=== PATIENT | male | born 1980 | race Caucasian/White ===

== ENCOUNTER 2016-11-09 09:57 | Emergency (ER) | payer SELFPAY ==
[2016-11-09] MEDS ORDERED: PENICILLIN G BENZATHINE 1.2 MILLION UNIT/2 ML DISP.SYRIN IM ONE (10:29)
[2016-11-09] MEDS ORDERED: AZITHROMYCIN 250 MG TABLET PO ONE (10:29)
[2016-11-09] MEDS ORDERED: LIDOCAINE 1% INJ-PF (10 MG/ML) 30 ML SDV INFIL ONE (10:29)
[2016-11-09] MEDS ORDERED: CEFTRIAXONE INJ 250 MG VIAL IM ONE (10:30)
--- NOTE | 2016-11-09 10:33 | ER Document Report ---
HPI - HPI Patient complains to provider of: skin lesion Onset: Other - 3 days Onset/Duration: Persistent Quality of pain: Achy Pain Level: 3 Context: Patient states that he had what looked to be a pimple to the right groin area that gradually got larger and then popped and had bloody purulent drainage. Patient states area is muffler tender and slightly swollen. Patient denies any history of MRSA. Associated Symptoms: Other - Skin lesion. denies: Fever Exacerbated by: Denies Relieved by: Denies Similar symptoms previously: No Recently seen / treated by doctor: No - ROS ROS below otherwise negative: Yes Systems Reviewed and Negative: Yes All other systems reviewed and negative - CONSTITUTIONAL Constitutional: DENIES: Fever - EENT EENT: DENIES: Sore Throat - RESPIRATORY Respiratory: DENIES: Coughing - GASTROINTESTINAL Gastrointestinal: DENIES: Abdominal Pain, Nausea, Patient vomiting - URINARY Urinary: DENIES: Dysuria - DERM Skin Color: Normal Notes: open wound Past Medical History - General Information source: Patient - Social History Smoking Status: Current Every Day Smoker Frequency of alcohol use: Occasional Drug Abuse: None Occupation: [employer] Family History: Reviewed & Not Pertinent - Medical History Medical History: Negative Renal/ Medical History: Denies: Hx Peritoneal Dialysis Skin Medical History: Denies Hx MRSA Surgical Hx: Negative Vertical Provider Document - CONSTITUTIONAL Agree With Documented VS: Yes Exam Limitations: No Limitations General Appearance: WD/WN, No Apparent Distress - INFECTION CONTROL TRAVEL OUTSIDE OF THE [place] IN LAST 30 DAYS: No - HEENT HEENT: Atraumatic, Normocephalic - NECK Neck: Normal Inspection - RESPIRATORY Respiratory: Breath Sounds Normal, No Respiratory Distress O2 Sat by Pulse Oximetry: 100 - CARDIOVASCULAR Cardiovascular: Regular Rate, Regular Rhythm - MUSCULOSKELETAL/EXTREMETIES Musculoskeletal/Extremeties: MAEW, FROM - NEURO Level of Consciousness: Awake, Alert, Appropriate Motor/Sensory: No Motor Deficit - DERM Integumentary: Warm, Dry Adult Front & Back Diagram: 1 - Tender, indurated ulceration to right inguinal area Course - Re-evaluation Re-evalutation: 11/09/16 The patient has been informed that they may have pre-hypertension or hypertension based on a blood pressure reading in the emergency department. I recommend that patient call the primary care provider listed on their discharge instructions or a physician of their choice by this week to arrange follow-up for further evaluation of possible pre-hypertension or hypertension. 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 Condition: Stable Disposition: HOME, SELF-CARE Instructions: Abscess ([facility]), Azithromycin ([facility]), Rocephin ([facility]), Trimethoprim- Sulfa ([facility]) Additional Instructions: Return immediately for any new or worsening symptoms Followup with your primary care provider, call tomorrow to make a followup appointment Cultures are pending, we will call if you need any different treatment Prescriptions: Hydrocodone/Acetaminophen [[place] 5-325 Tablet] 1 each PO Q4 PRN #15 tablet PRN Reason: Sulfamethoxazole/Trimethoprim [Bactrim Ds Tablet] 1 each PO BID #20 tablet Forms: Elevated Blood Pressure, Return to Work Referrals: [facility] [Provider Group] - Follow up as needed
[2016-11-09 11:59] VITALS: BP 133/86
== END 2016-11-09 12:02 | disposition home or self-care (01) ==
LOC: ER 09:57
DX: L98.491 Non-pressure chronic ulcer of skin of other sites limited to breakdown of skin (principal); L02.214 Cutaneous abscess of groin; R03.0 Elevated blood-pressure reading, without diagnosis of hypertension; F17.200 Nicotine dependence, unspecified, uncomplicated
CPT/HCPCS: 99283; 96372; 36415; 87070; 87205; 87077; 86592; 87250; 87186; J3490; J0561; J0696

== ENCOUNTER 2017-02-08 14:53 | Emergency (ER) | payer SELFPAY ==
[2017-02-08] MEDS ORDERED: ONDANSETRON 4 MG TAB.RAPDIS PO ONE (15:16)
[2017-02-08] MEDS ORDERED: IBUPROFEN 800 MG TABLET PO ONE (15:16)
--- NOTE | 2017-02-08 15:17 | ER Document Report ---
HPI - HPI Patient complains to provider of: Cough, congestion sore throat Onset: Yesterday Onset/Duration: Gradual Quality of pain: Achy Pain Level: 1 Context: Patient presents complaining of cough and congestion that started yesterday. Patient states he had nausea and vomiting 1 episode yesterday. Patient is nauseated today but denies any vomiting today. Patient reports fever yesterday. Associated Symptoms: Body/muscle aches, Chills, Nonproductive cough, Fever - Yesterday, Nausea, Vomiting, Rhinnorhea, Sore throat. denies: Earache Exacerbated by: Denies Relieved by: Denies Similar symptoms previously: No Recently seen / treated by doctor: No - ROS ROS below otherwise negative: Yes Systems Reviewed and Negative: Yes All other systems reviewed and negative - CONSTITUTIONAL Constitutional: REPORTS: Fever, Chills - EENT EENT: REPORTS: Sore Throat, Nasal Drainage-Clear, Congestion - NEURO Neurology: DENIES: Headache, Weakness - CARDIOVASCULAR Cardiovascular: DENIES: Chest pain - RESPIRATORY Respiratory: REPORTS: Coughing - GASTROINTESTINAL Gastrointestinal: REPORTS: Nausea, Patient vomiting. 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 IN LAST 30 DAYS: No - HEENT HEENT: Atraumatic, Normocephalic, Pharyngeal Tenderness, Pharyngeal Erythema. negative: Pharyngeal Exudate, Tympanic Membrane Red, Tympanic Membrane Bulging Notes: Clear rhinorrhea - NECK Neck: Normal Inspection, Supple. negative: Lymphadenopathy-Left, Lymphadenopathy-Right - RESPIRATORY Respiratory: No Respiratory Distress, Chest Non-Tender, Other - Occasional dry cough O2 Sat by Pulse Oximetry: 100 - CARDIOVASCULAR Cardiovascular: Regular Rate, Regular Rhythm, No Murmur - BACK Back: Normal Inspection - MUSCULOSKELETAL/EXTREMETIES Musculoskeletal/Extremeties: HAFSA [place] - NEURO Level of Consciousness: Awake, Alert, Appropriate Motor/Sensory: No Motor Deficit - DERM Integumentary: Warm, Dry, No Rash Course - Re-evaluation Re-evalutation: 02/08/17 Patient's respirations unlabored. Patient nontoxic in appearance. No concern for pneumonia. Discussed worsening symptoms that patient should return immediately for. Patient verbalized understanding and agrees with plan of care - Vital Signs Vital signs: Temp Pulse Resp BP Pulse Ox 98.5 F 59 L 18 156/88 H 100 02/08/17 14:57 02/08/17 14:57 02/08/17 14:57 02/08/17 14:57 02/08/17 14:57 - Laboratory Laboratory results interpreted by me: 02/08/17 17:25 Labs- Entire Visit 02/08/17 16:00 Group A Strep Rapid NEGATIVE Discharge - Discharge Clinical Impression: Sore throat, Nausea Upper respiratory infection Qualifiers: URI type: unspecified URI Qualified Code(s): J06.9 - Acute upper respiratory infection, unspecified Condition: Stable Disposition: HOME, SELF-CARE Instructions: Antinausea Medication ([facility]), Upper Respiratory Illness ([facility]) Additional Instructions: Return immediately for any new or worsening symptoms Followup with your primary care provider, call tomorrow to make a followup appointment Throat culture is pending, we will call if you need any different treatment Prescriptions: Benzonatate [Tessalon Perle 100 mg Capsule] 100 mg PO Q8HP PRN #20 cap PRN Reason: Naproxen [Naprosyn 250 Nmg Tablet] 1 tab PO BID #14 tablet Promethazine HCl [Phenergan 25 mg Tablet] 25 mg PO Q6H PRN #12 tablet PRN Reason: Forms: Return to Work Referrals: [facility] [Provider Group] - Follow up as needed
[2017-02-08 17:24] VITALS: BP 136/93
== END 2017-02-08 17:24 | disposition home or self-care (01) ==
LOC: ER 14:53
DX: J06.9 Acute upper respiratory infection, unspecified (principal); J02.9 Acute pharyngitis, unspecified; R11.2 Nausea with vomiting, unspecified; R05 Cough; R09.81 Nasal congestion; M79.1 Myalgia; R50.9 Fever, unspecified; F17.200 Nicotine dependence, unspecified, uncomplicated
CPT/HCPCS: 99283; 87070; 87880; S0119

== ENCOUNTER 2017-02-14 01:08 | Emergency (ER) | payer SELFPAY ==
--- NOTE | 2017-02-14 02:52 | RADIOLOGY REPORT (SQ) ---
EXAM DESCRIPTION: HAND LEFT 3 VIEWS CLINICAL HISTORY: 36 years, Male, hand injury COMPARISON: None. NUMBER OF VIEWS: 3 TECHNIQUE: Frontal lateral and oblique. LIMITATIONS: None. FINDINGS: Deformity of the left fifth metacarpus consistent with old injury. IMPRESSION: As above. 2011 [employer]- All Rights Reserved
[2017-02-14 02:57] VITALS: BP 120/80
[2017-02-14] MEDS ORDERED: IBUPROFEN 600 MG TABLET PO ONE (03:05)
--- NOTE | 2017-02-14 03:05 | ER Document Report ---
HPI - HPI Patient complains to provider of: Left hand injury Pain Level: 5 Context: Patient is a 36-year-old male comes emergency department for chief complaint of left hand injury. He states he was angry and he punched a trailer this evening. He has had swelling to his hand and he became concerned. He also has a second concern of an area on his right groin which is a skin infection per patient. He states this appeared about 2 days ago, he has had similar infections in the same area in the past. He states he was also tested because of this previously and he wants to know his results from last time. He denies any fever chills, discharge, he states he is sexually active with his girlfriend. - CONSTITUTIONAL Constitutional: DENIES: Fever, Chills - EENT EENT: DENIES: Sore Throat, Ear Pain, Eye problems - NEURO Neurology: DENIES: Headache, Weakness, Vision blurred, Dizzinesss / Vertigo - CARDIOVASCULAR Cardiovascular: DENIES: Chest pain - RESPIRATORY Respiratory: DENIES: Trouble Breathing, Coughing - GASTROINTESTINAL Gastrointestinal: DENIES: Abdominal Pain, Black / Bloody Stools - URINARY Urinary: DENIES: Dysuria, Urgency, Frequency - MUSCULOSKELETAL Musculoskeletal: REPORTS: Extremity pain - L hand Past Medical History - General Information source: Patient - Social History Smoking Status: Current Some Day Smoker Frequency of alcohol use: Social Drug Abuse: None Lives with: Family Family History: Reviewed & Not Pertinent Patient has suicidal ideation: No Patient has homicidal ideation: No - Medical History Medical History: Negative Renal/ Medical History: Denies: Hx Peritoneal Dialysis Skin Medical History: Denies Hx MRSA Past Surgical History: Reports: Hx Tonsillectomy - Immunizations Hx Diphtheria, Pertussis, Tetanus Vaccination: No Vertical Provider Document - CONSTITUTIONAL General Appearance: WD/WN, No Apparent Distress - INFECTION CONTROL TRAVEL OUTSIDE OF THE [place] IN LAST 30 DAYS: No - HEENT HEENT: Atraumatic, Normocephalic - NECK Neck: Normal Inspection - RESPIRATORY Respiratory: Breath Sounds Normal, No Respiratory Distress O2 Sat by Pulse Oximetry: 98 - CARDIOVASCULAR Cardiovascular: Regular Rate, Regular Rhythm - GI/ABDOMEN Gastrointestinal: Abdomen Soft, Abdomen Non-Tender - MUSCULOSKELETAL/EXTREMETIES Musculoskeletal/Extremeties: Tender - There is mild soft tissue swelling over the dorsal aspect of the left hand near the knuckles and over the MCP joints. No snuffbox tenderness, full range of motion of hand, normal capillary refill and sensation, normal range of motion of the wrist, normal upper extremity exam otherwise. No open wounds. - NEURO Level of Consciousness: Awake, Alert, Appropriate - DERM Integumentary: Rash - There is an erythematous area over the right lower inguinal region near the genitals, there is a scratched surface, no induration or fluctuance, mild tenderness to the area, no nearby lymphadenopathy, genital exam unremarkable otherwise. Course - Re-evaluation Re-evalutation: X-ray shows old fracture but no new abnormalities. Patient has some soft tissue swelling, no snuffbox tenderness, no evidence of fracture. Area will be iced and he will take an anti-inflammatory. In regards to the rash it does appear to be a mild area of cellulitis around what was a scratched open area of acne or plugged sebaceous gland. There is no induration or fluctuance requiring drainage, there is no vesicle or chancre noted. Previous tests of HSV and syphilis were negative. Patient will be placed on doxycycline, discussed follow-up, return precautions, patient and girlfriend state understanding and agreement. - Vital Signs Vital signs: Temp Pulse Resp BP Pulse Ox 98 F 56 L 16 120/80 98 02/14/17 02:57 02/14/17 02:57 02/14/17 02:57 02/14/17 02:57 02/14/17 02:57 Discharge - Discharge Clinical Impression: Skin infection Injury of left hand Qualifiers: Encounter type: initial encounter Qualified Code(s): S69.92XA - Unspecified injury of left wrist, hand and finger(s), initial encounter Condition: Stable Disposition: HOME, SELF-CARE Additional Instructions: The x-ray shows an old fracture, examination is consistent with soft tissue injury but no new fracture. Apply ice to the area 3-4 times a day for 15 minutes, take the ibuprofen as prescribed, follow-up with primary care. In regards to the skin infection I recommend taking the doxycycline as prescribed, apply warm compress to the area. Follow-up with primary care. Previous syphilis and herpes tests were negative. Return to the emergency department for any concerning or worsening symptoms including severe swelling or pain of the hand, spreading redness of the rash, fever, or any other concerning symptoms. Prescriptions: Doxycycline Hyclate 100 mg PO BID #14 capsule Ibuprofen 800 mg PO Q8 #30 tablet Forms: Return to Work
== END 2017-02-14 03:14 | disposition home or self-care (01) ==
LOC: ER 01:08
DX: S69.92XA Unspecified injury of left wrist, hand and finger(s), initial encounter (principal); L08.9 Local infection of the skin and subcutaneous tissue, unspecified; M79.89 Other specified soft tissue disorders; F17.200 Nicotine dependence, unspecified, uncomplicated; W22.01XA Walked into wall, initial encounter
CPT/HCPCS: 99283

== ENCOUNTER 2017-02-18 23:04 | Emergency (ER) | payer SELFPAY ==
[2017-02-18 23:11] VITALS: BP 148/97
--- NOTE | 2017-02-18 23:27 | ER Document Report ---
ED Hand/Wrist Injury - General Chief Complaint: Hand Injury Stated Complaint: LEFT HAND SWELLING Time Seen by Provider: 02/18/17 23:21 Notes: Patient is a [id number] 36-year-old male who was seen here previously on February 14 for a left hand injury. Patient states he punched something and has had pain and swelling of that hand. Patient claims that his x-rays were nondiagnostic due to the significant swelling. He should ice his hand and take Motrin and follow-up in a couple of days for new images. He states that his pain is improving and the swelling is going down but that he still has pain on the palmar surface raise evidence of ecchymosis of his palm. Otherwise denies any new trauma. States sensation is equal bilaterally. Previous boxer fracture of the left hand. TRAVEL OUTSIDE OF THE [place] IN LAST 30 DAYS: No - Related Data Allergies/Adverse Reactions: No Known Allergies Allergy (Verified 02/08/17 14:54) Past Medical History - Social History Smoking Status: Unknown if Ever Smoked Family History: Reviewed & Not Pertinent Patient has suicidal ideation: No Patient has homicidal ideation: No Renal/ Medical History: Denies: Hx Peritoneal Dialysis Skin Medical History: Denies Hx MRSA Past Surgical History: Reports: Hx Tonsillectomy - Immunizations Hx Diphtheria, Pertussis, Tetanus Vaccination: No Review of Systems - Review of Systems Constitutional: No symptoms reported Cardiovascular: No symptoms reported Respiratory: No symptoms reported Gastrointestinal: No symptoms reported Musculoskeletal: See HPI Skin: No symptoms reported -: Yes All other systems reviewed and negative Physical Exam - Vital signs Vitals: Temp Pulse Resp BP Pulse Ox 98.6 F 60 16 148/97 H 100 02/18/17 23:11 02/18/17 23:11 02/18/17 23:11 02/18/17 23:11 02/18/17 23:11 - Notes Notes: PHYSICAL EXAM GENERAL: Alert, interacts well. EXTREMITIES: Moves all 4 extremities spontaneously with guarding of the left hand. Patient is able to make a fist and extend his fingers. Strength is equal in all left upper extremity digits. Patient without any pain or limited range of motion of the elbow. Moves his wrist without pain. Mild ecchymosis noted on the palmar surface of the left hand but without any evidence of deformity or localized swelling.. No edema, radial No cyanosis. NEUROLOGICAL: Alert and oriented x4. Normal speech. PSYCH: Normal affect, normal mood. SKIN: Warm, dry, normal turgor. No rashes or lesions noted. Course - Re-evaluation Re-evalutation: 02/19/17 01:43 Patient is 36-year-old male who is hemodynamically stable, no acute distress. There is evidence of old fractures noted on the heads of the fourth and fifth metacarpals of the left hand without evidence of new injury.At this time, I do not see an indication for labs or further imaging. Will discharge with conservative measures, return precautions, and follow-up recommendations. - Vital Signs Vital signs: Temp Pulse Resp BP Pulse Ox 98.6 F 60 16 148/97 H 100 02/18/17 23:11 02/18/17 23:11 02/18/17 23:11 02/18/17 23:11 02/18/17 23:11 - Diagnostic Test Radiology reviewed: Image reviewed, Reports reviewed Discharge - Discharge Clinical Impression: Injury of left hand Qualifiers: Encounter type: subsequent encounter Qualified Code(s): S69.92XD - Unspecified injury of left wrist, hand and finger(s), subsequent encounter Condition: Good Disposition: HOME, SELF-CARE Additional Instructions: The x-ray shows an old fracture, examination is consistent with soft tissue injury but no new fracture. Apply ice to the area 3-4 times a day for 15 minutes, take the ibuprofen as prescribed, follow-up with primary care. Return to the emergency department for any concerning or worsening symptoms including severe swelling or pain of the hand, spreading redness of the rash, fever, or any other concerning symptoms. Forms: Special Work Note, Return to Work Referrals: PETROS NICHOLSON MD [COMMUNITY BASED STAFF] - Follow up as needed [facility] [NO [facility]AL MD] - Follow up as needed [facility] [Provider Group] - Follow up as needed
[2017-02-19] MEDS ORDERED: ACETAMINOPHEN 325 MG TABLET PO ONE (00:13)
--- NOTE | 2017-02-19 01:11 | RADIOLOGY REPORT (SQ) ---
EXAM DESCRIPTION: HAND LEFT 3 VIEWS CLINICAL HISTORY: 36 years, Male, hand pain, no new injury COMPARISON: None. NUMBER OF VIEWS: 3 FINDINGS: No acute findings. Mild deformity of the distal left fourth and fifth metacarpi consistent with old injury. IMPRESSION: No acute findings. 2011 [employer]- All Rights Reserved
== END 2017-02-19 01:51 | disposition home or self-care (01) ==
LOC: ER 23:04
DX: S69.92XA Unspecified injury of left wrist, hand and finger(s), initial encounter (principal); W22.01XD Walked into wall, subsequent encounter
CPT/HCPCS: 99283

== ENCOUNTER 2017-03-02 21:04 | Emergency (ER) | payer SELFPAY ==
[2017-03-02 21:11] VITALS: BP 137/87
--- NOTE | 2017-03-02 22:02 | ER Document Report ---
ED Hand/Wrist Injury - General Chief Complaint: Hand Injury Stated Complaint: LEFT HAND INJURY Time Seen by Provider: 03/02/17 21:47 Mode of Arrival: Ambulatory Information source: Patient, Relative Notes: Patient is a 36-year-old male who returns emergency room complaining of left hand pain. Partially 2 weeks ago patient states she got mad and hit a wall came into the emergency room hand swelled up and an x-ray was told there is no fracture he was sent home about a week later he came back still having some pain and discomfort it was re-x-rayed again again radiologist reads it as negative patient states he was told by provider to give it another 7 days and if there was still no improvement to come back to ER. Patient returns tonight wanting to know what he can do because he has missed 2 weeks of work and he needs to get back to it. He denies any other new injuries. TRAVEL OUTSIDE OF THE [place] IN LAST 30 DAYS: No - HPI Patient complains to provider of: Left hand pain Injury to: Hand Onset: Last week - Original date of injury is on February 14, 2017 patient followed up on February 18, 2017 and returns back here today on 03/02/2017 [facility]: [facility] place Timing: Constant Quality of pain: Sharp Severity: Moderate Pain Level: 3 Context: Swelling - Related Data Allergies/Adverse Reactions: No Known Allergies Allergy (Verified 02/08/17 14:54) Past Medical History - General Information source: Patient - Social History Smoking Status: Current Every Day Smoker Cigarette use (# per day): Yes - Pack a day Chew tobacco use (# tins/day): No Smoking Education Provided: Yes Frequency of alcohol use: Occasional Drug Abuse: None 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 Lives with: Family Family History: Reviewed & Not Pertinent Patient has suicidal ideation: No Patient has homicidal ideation: No Renal/ Medical History: Denies: Hx Peritoneal Dialysis Skin Medical History: Denies Hx MRSA Past Surgical History: Reports: Hx Tonsillectomy - Immunizations Hx Diphtheria, Pertussis, Tetanus Vaccination: No Review of Systems - Review of Systems Constitutional: No symptoms reported EENT: No symptoms reported Cardiovascular: No symptoms reported Respiratory: No symptoms reported Gastrointestinal: No symptoms reported Genitourinary: No symptoms reported Male Genitourinary: No symptoms reported Musculoskeletal: Joint pain, Muscle pain Skin: No symptoms reported Hematologic/Lymphatic: No symptoms reported Neurological/Psychological: No symptoms reported -: Yes All other systems reviewed and negative Physical Exam - Vital signs Vitals: Temp Pulse Resp BP Pulse Ox 98.2 F 77 16 137/87 H 100 03/02/17 21:10 03/02/17 21:10 03/02/17 21:10 03/02/17 21:10 03/02/17 21:10 Interpretation: Hypertensive - General General appearance: Alert, Other - Uncomfortable. - HEENT Head: Normocephalic, Atraumatic - Respiratory Respiratory status: No respiratory distress Chest status: Nontender Breath sounds: Normal. No: Decreased air movement, Nonproductive cough, Productive cough, Rales, Rhonchi, Stridor, Wheezing, Other - Cardiovascular Rhythm: Regular Heart sounds: Normal auscultation Murmur: No - Extremities General upper extremity: Tender. No: Normal inspection, Nontender, Edema, Normal color, Normal ROM, Normal strength, Normal temperature, Other General lower extremity: Normal inspection, Normal ROM, Normal weight bearing Hand: Tender, Other - Examination of patient's left hand shows that he has full flexion-extension of the fingers with some difficulty on full extension. He has pain in the palm of the hand across the fifth fourth and third fingers. There is a tenderness to palpation and to touch along those 3 finger lines primarily at the palm side fourth digit. Vascular exam of the hand is normal patient has good cap refill in nailbeds of all the fingers of the left hand. 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 Is unable to hold supervisor instant potato processing against resistance. Further evaluation shows a skin temperature to be normal there is no sign of infection nothing that would lead to believe that this would be a tenosynovitis presentation. - Skin Skin Temperature: Warm Skin Moisture: Dry Skin Color: Normal, [place] Course - Vital Signs Vital signs: Temp Pulse Resp BP Pulse Ox 98.2 F 77 16 137/87 H 100 03/02/17 21:10 03/02/17 21:10 03/02/17 21:10 03/02/17 21:10 03/02/17 21:10 - Transfer of Care Notes: 03/02/17 22:08 I told patient that at this point emergency room is the least of the place that she should come. We have limited resources as far as to this type of an injury. He needs to be followed up with a hand specialist or an logistic specialist. I have explained to him that ruling out fractures about all we can do here in the emergency room. That the tenderness to the hand could still be a partially torn tendon or ligament. Something that continuous x-rays is not going to solve the problem. I have informed him that he really needs to speak to a hand or logistic specialist I am going to give him Dr. Vazquez office number and have him call the office to set an appointment. I am going to put him on a dose of steroids to see if this helps alleviate some of the discomfort possible inflammation that may be inside. The injury to the hand was self- inflicted patient got mad and hit a brick wall. He is predominantly left- handed. /girlfriend under stood the instructions that I have given them and will attempt to contact the orthopedics office after the s. Discharge - Discharge Clinical Impression: Tendinitis of left hand Condition: Good Disposition: HOME, SELF-CARE Additional Instructions: Tendonitis The pain you are having is due to tendonitis -- an inflammation around a muscle tendon. It's usually caused by overuse or repeated minor injuries ( strains) of the tendon. Tendonitis can take two to four weeks to heal. In fact, you may actually worsen for a few days despite treatment. Tendonitis is usually treated with rest, local heat, and antiinflammatory medication. Sometimes cold packs are recommended if the tendonitis has just started. If the pain is severe or prolonged, cortisone injections may be required. Call the doctor if pain or swelling become severe, if new discoloration or redness appears, or if numbness is noted. Home and use warm moist soaks for 10-15 minutes in the morning to some light stretching as we discussed by pulling away from the discomfort and a repeat this a couple times during the day. Take medication as prescribed. I am giving you the number to the orthopedic doctor we recommend for hands here in town. This is you may contact his office to see if he can accommodate you. Should you have any other concerns or problems return to ER for recheck. Prescriptions: Prednisone [Sterapred Ds] 10 mg PO DAILY 6 Days #1 tab.ds.pk Referrals: SIOBHAN THOMPSON, [ACTIVE STAFF] - Follow up as needed
== END 2017-03-02 23:00 | disposition home or self-care (01) ==
LOC: ER 21:04
DX: M77.9 Enthesopathy, unspecified (principal); S69.92XD Unspecified injury of left wrist, hand and finger(s), subsequent encounter; M79.642 Pain in left hand; W22.01XD Walked into wall, subsequent encounter; F17.210 Nicotine dependence, cigarettes, uncomplicated
CPT/HCPCS: 99283

== ENCOUNTER 2017-12-09 21:55 | Observation (INO) | payer SELFPAY ==
[2017-12-09] MEDS ORDERED: EPINEPHRINE INJ/PF 1 MG/1 ML AMPULE ONE (22:04)
[2017-12-09] MEDS ORDERED: EPINEPHRINE INJ/PF 1 MG/1 ML AMPULE IM ONE (22:06)
[2017-12-09] MEDS ORDERED: FAMOTIDINE INJ/PF 20 MG/2 ML SDV IV ONE (22:06)
[2017-12-09] MEDS ORDERED: METHYLPREDNISOLONE INJ 125 MG/2 ML SDV IV ONE (22:06)
--- NOTE | 2017-12-09 22:10 | ER Document Report ---
ED General - General Chief Complaint: Allergic Reaction Stated Complaint: ALLERGIC REACTION Time Seen by Provider: 12/09/17 22:06 Notes: Patient is a 37-year-old male who presents with complaint of severe allergic reaction. He says he noticed it first at 9 AM this morning started having hives. Throughout the day has progressed. He has been taking Benadryl. Elastic bandage of an hour and a half ago. Says he took 4 Benadryl capsules. He says he has little bit itchiness in his throat. No difficulty breathing or swallowing at this time. I will known bug bites. No new medications. No exposure to anything that he can think of that might be causing this. This is not some things happen in the past. He says that the hives itch and burn. TRAVEL OUTSIDE OF THE [place] IN LAST 30 DAYS: No - Related Data Allergies/Adverse Reactions: No Known Allergies Allergy (Verified 12/09/17 21:56) Past Medical History - Social History Smoking Status: Unknown if Ever Smoked Frequency of alcohol use: None Drug Abuse: None Family History: Reviewed & Not Pertinent Renal/ Medical History: Denies: Hx Peritoneal Dialysis Skin Medical History: Denies Hx MRSA Past Surgical History: Reports: Hx Tonsillectomy - Immunizations Hx Diphtheria, Pertussis, Tetanus Vaccination: No Review of Systems - Review of Systems Notes: My Normal Review Basic REVIEW OF SYSTEMS: CONSTITUTIONAL : Denies fever, chills, or sweats. Denies recent illness. EENT: Denies eye, ear, throat, or mouth pain or symptoms. Denies nasal or sinus congestion. CARDIOVASCULAR: Denies chest pain. RESPIRATORY: Denies cough, cold, or chest congestion. Denies shortness of breath, difficulty breathing, or wheezing. GASTROINTESTINAL: Denies abdominal pain. Denies nausea, vomiting, or diarrhea. Denies constipation. Last BM: MUSCULOSKELETAL: Denies neck or back pain or joint pain or swelling. SKIN: hives NEUROLOGICAL: Denies altered mental status or loss of consciousness. ALL OTHER SYSTEMS REVIEWED AND NEGATIVE. Physical Exam - Vital signs Vitals: Pulse 46 L 12/09/17 22:00 - Notes Notes: General Appearance: Well nourished, alert, cooperative, no acute distress, no obvious discomfort. Vitals: reviewed, See vital signs table. Head: Swelling over the face. Some swelling to the lips. Eyes: PERRL, EOMI, Conjuctiva clear Mouth: No glossal or pharyngeal swelling. Throat: No tonsillar inflammation, No airway obstruction, No lymphadenopathy Neck: Supple, no neck tenderness, No thyromegaly Lungs: No wheezing, No rales, No rhonci, No accessory muscle use, good air exchange bilaterally. Heart: Normal rate, Regular rythm, No murmur, no rub Abdomen: Normal BS, soft, No rigidity, No abdominal tenderness, No guarding, no rebound, no abdominal masses, no organomegaly Extremities: strength 5/5 in all extremities, good pulses in all extremities, no swelling or tenderness in the extremities, no edema. Skin: Hives covering the torso, face, and extremities. It spares the palms and soles. Neuro: speech clear, oriented x 3, normal affect, responds appropriately to questions. Course - Re-evaluation Re-evalutation: 12/09/17 22:09 Patient has widespread hives with facial swelling. Currently does not have any oropharyngeal symptoms however he says he does feel as if his throat is scratchy. I will give him 0.3 mg of IM epi. He does have Benadryl at home. Replacing IV and will give him Solu-Medrol and Pepcid. He will be placed on monitor and closely watch to make sure that his symptoms improve and do not progress. 12/09/17 22:46 Hives have started to resolve. He still has some facial swelling but this is also improving. We will continue to closely monitor him. 12/10/17 02:37 Patient's hives eventually returned. He still having itching again. I therefore gave him another dose of epinephrine as well as some Benadryl. Due to that he is refractory and having recurrence of hives and facial swelling after the epi wears off feel this is appropriate to admit him for observation. I did speak with the hospitalist, Dr. Allen, who agrees to evaluate the patient for admission. Dictation of this chart was performed using voice recognition software; therefore, there may be some unintended grammatical errors. - Vital Signs Vital signs: Temp Pulse Resp BP Pulse Ox 46 L 15 105/70 99 12/09/17 22:00 12/09/17 22:07 12/09/17 22:07 12/09/17 22:07 - Laboratory Result Diagrams: 12/10/17 01:07 12/10/17 01:07 Laboratory results interpreted by me: 12/10/17 01:07 Plt Count 131 L Seg Neutrophils % 89.0 H Lymphocytes % 5.9 L Absolute Lymphocytes 0.4 L Discharge - Discharge Clinical Impression: Allergic reaction Qualifiers: Encounter type: initial encounter Qualified Code(s): T78.40XA - Allergy, unspecified, initial encounter Condition: Stable Disposition: ADMITTED OBSERVATION Admitting Provider: Hospitalist Unit Admitted: Telemetry
[2017-12-10] MEDS ORDERED: EPINEPHRINE INJ/PF 1 MG/1 ML AMPULE IM ONE (00:41)
[2017-12-10] MEDS ORDERED: DIPHENHYDRAMINE HCL 50 MG/ML VIAL IV ONE (00:42)
[2017-12-10 01:17] LABS: ABSOLUTE EOSINOPHILS # (AUTO) 0.1 10^3/uL (0.0-0.6); ABSOLUTE LYMPHOCYTES (AUTO) 0.4 10^3/uL (0.5-4.7); ABSOLUTE MONOCYTES (AUTO) 0.2 10^3/uL (0.1-1.4); ABSOLUTE NEUT (AUTO) 5.3 10^3/uL (1.7-8.2); BASOPHILS % (AUTO) 0.2 % (0-2); EOSINOPHILS % (AUTO) 1.4 % (0-6); HEMATOCRIT 47.9 % (37.9-51.0); HEMOGLOBIN 16.5 g/dL (13.5-17.0); LYMPHOCYTES % (AUTO) 5.9 % (13-45); MEAN CORPUSCULAR HEMOGLOBIN 33.3 pg (27.0-33.4); MEAN CORPUSCULAR HGB CONC 34.3 g/dL (32.0-36.0); MEAN CORPUSCULAR VOLUME 97 fl (80-97); MONOCYTES % (AUTO) 3.5 % (3-13); PLATELET COUNT 131 10^3/uL (150-450); RED BLOOD COUNT 4.94 10^6/uL (4.35-5.55); RED CELL DISTRIBUTION WIDTH 12.7 % (11.5-14.0); TOTAL CELLS COUNTED % (AUTO) 100 %
[2017-12-10] MEDS ORDERED: IPRATROPIUM/ALBUTEROL 0.5-2.5 MG/3 ML AMPUL NEB PRN (01:35)
[2017-12-10] MEDS ORDERED: ACETAMINOPHEN 325 MG TABLET PO PRN (01:35)
[2017-12-10] MEDS ORDERED: DIPHENHYDRAMINE HCL 50 MG/ML VIAL ONE (01:36)
--- NOTE | 2017-12-10 05:39 | PDOC H&P ---
History of Present Illness Admission Date/PCP: 12/10/17 02:43 Patient complains of: Severe allergic reaction History of Present Illness: TAMIA FRYE is a 37 year old male with a past medical history of tobacco , alcohol dependence and severe allergy to cut grass. He presents with 12 hours of itching throat, facial swelling and hives after contact with his children who had been on the lawn. Symptoms have worsened despite on 100 mg of Benadryl and Tylenol. He admits a mild episode previously. He denies current medications and is otherwise felt well. In the emergency room he has an unremarkable workup with exception to mild thrombocytopenia. He receives IM epinephrine x2, IV Pepcid, Solu-Medrol and referred to the hospitalist for admission Past Medical History Medical History: None Past Surgical History Past Surgical History: Reports: Tonsillectomy Social History Information Source: Patient Lives with: Family Smoking Status: Current Every Day Smoker Frequency of Alcohol Use: Heavy - 80 ounces of beer per day, denies history of withdrawal symptoms Drugs: None - Advance Directive Resuscitation Status: Full Code Family History Family History: Hypertension Parental Family History Reviewed: Yes Children Family History Reviewed: Yes Sibling(s) Family History Reviewed.: Yes Medication/Allergy Home Medications: Hydrocodone/Acetaminophen [[place] 5-325 Tablet] 1 each PO Q4 PRN #15 tablet 11/09 Sulfamethoxazole/Trimethoprim [Bactrim Ds Tablet] 1 each PO BID #20 tablet 11/09 Benzonatate [Tessalon Perle 100 mg Capsule] 100 mg PO Q8HP PRN #20 cap 02/08/17 Naproxen [Naprosyn 250 Nmg Tablet] 1 tab PO BID #14 tablet 02/08/17 Promethazine HCl [Phenergan 25 mg Tablet] 25 mg PO Q6H PRN #12 tablet 02/08/17 Doxycycline Hyclate 100 mg PO BID #14 capsule 02/14/17 Ibuprofen 800 mg PO Q8 #30 tablet 02/14/17 Prednisone [Sterapred Ds] 10 mg PO DAILY 6 Days #1 tab.ds.pk 03/02/17 Allergies/Adverse Reactions: No Known Allergies Allergy (Verified 12/09/17 21:56) Review of Systems Constitutional: ABSENT: chills, fever(s), headache(s), weight gain, weight loss Eyes: ABSENT: visual disturbances Ears: ABSENT: hearing changes Cardiovascular: ABSENT: chest pain, dyspnea on exertion, edema, orthropnea, palpitations Respiratory: ABSENT: cough, hemoptysis Gastrointestinal: ABSENT: abdominal pain, constipation, diarrhea, hematemesis, hematochezia, nausea, vomiting Genitourinary: ABSENT: dysuria, hematuria Musculoskeletal: ABSENT: joint swelling Integumentary: ABSENT: rash, wounds Neurological: ABSENT: abnormal gait, abnormal speech, confusion, dizziness, focal weakness, syncope Psychiatric: ABSENT: anxiety, depression, homidical ideation, suicidal ideation Endocrine: ABSENT: cold intolerance, heat intolerance, polydipsia, polyuria Hematologic/Lymphatic: ABSENT: easy bleeding, easy bruising Physical Exam Vital Signs: Temp Pulse Resp BP Pulse Ox 46 L 16 125/75 98 12/09/17 22:00 12/10/17 03:01 12/10/17 03:01 12/10/17 03:01 General appearance: PRESENT: cooperative, mild distress, well-developed, well- nourished, other - Diffuse hives and facial swelling. ABSENT: disheveled Head exam: PRESENT: atraumatic, normocephalic Eye exam: PRESENT: conjunctiva pink, EOMI, PERRLA. ABSENT: scleral icterus Ear exam: PRESENT: normal external ear exam Mouth exam: PRESENT: moist, tongue midline Neck exam: ABSENT: carotid bruit, JVD, lymphadenopathy, thyromegaly Respiratory exam: PRESENT: clear to auscultation henry. ABSENT: rales, rhonchi, wheezes Cardiovascular exam: PRESENT: RRR. ABSENT: diastolic murmur, rubs, systolic murmur Pulses: PRESENT: normal dorsalis pedis pul Vascular exam: PRESENT: normal capillary refill GI/Abdominal exam: PRESENT: normal bowel sounds, soft. ABSENT: distended, guarding, mass, organolmegaly, rebound, tenderness Rectal exam: PRESENT: deferred Extremities exam: PRESENT: full ROM. ABSENT: calf tenderness, clubbing, pedal edema Neurological exam: PRESENT: alert, awake, oriented to person, oriented to place , oriented to time, oriented to situation, CN II-XII grossly intact. ABSENT: motor sensory deficit Psychiatric exam: PRESENT: appropriate affect, normal mood. ABSENT: homicidal ideation, suicidal ideation Skin exam: PRESENT: dry, erythema - Facial erythema, swelling and hives, intact , rash, urticaria, warm. ABSENT: cyanosis Assessment & Plan - Diagnosis (1) Allergic reaction Qualifiers: Encounter type: initial encounter Qualified Code(s): T78.40XA - Allergy, unspecified, initial encounter Is this a current diagnosis for this admission?: Yes Plan: Severe allergic reaction possibly anaphylactic, telemetry admission, epinephrine as needed, Solu-Medrol, Pepcid and supportive care - Time Time Spent: 30 to 50 Minutes
[2017-12-10] MEDS ORDERED: HEPARIN SOD (PORCINE) 5,000 UNIT/ML 1 ML SYRINGE SUBCUT SCH (06:00)
[2017-12-10] MEDS ORDERED: METHYLPREDNISOLONE INJ 125 MG/2 ML SDV IV SCH (06:00)
[2017-12-10] MEDS ORDERED: FAMOTIDINE INJ/PF 20 MG/2 ML SDV IV SCH (06:00)
[2017-12-10 06:52] LABS: ABSOLUTE LYMPHOCYTES (AUTO) 0.4 10^3/uL (0.5-4.7); ABSOLUTE MONOCYTES (AUTO) 0.2 10^3/uL (0.1-1.4); ABSOLUTE NEUT (AUTO) 5.1 10^3/uL (1.7-8.2); BASOPHILS % (AUTO) 0.1 % (0-2); EOSINOPHILS % (AUTO) 0.1 % (0-6); HEMOGLOBIN 16.3 g/dL (13.5-17.0); LYMPHOCYTES % (AUTO) 6.7 % (13-45); MEAN CORPUSCULAR HEMOGLOBIN 32.9 pg (27.0-33.4); MEAN CORPUSCULAR VOLUME 97 fl (80-97); PLATELET COUNT 145 10^3/uL (150-450); RED BLOOD COUNT 4.96 10^6/uL (4.35-5.55); RED CELL DISTRIBUTION WIDTH 12.5 % (11.5-14.0); SEGMENTED NEUTROPHILS % (AUTO) 89.1 % (42-78); TOTAL CELLS COUNTED % (AUTO) 100 %; WHITE BLOOD COUNT 5.7 10^3/uL (4.0-10.5)
[2017-12-10 07:21] LABS: ANION GAP 7 (5-19); BLOOD UREA NITROGEN 11 mg/dL (7-20); CALCIUM 9.2 mg/dL (8.4-10.2); CARBON DIOXIDE 22 mmol/L (22-30); CHLORIDE 109 mmol/L (98-107); GLUCOSE 149 mg/dL (75-110); POTASSIUM 4.5 mmol/L (3.6-5.0)
[2017-12-10 11:13] VITALS: BP 126/92
--- NOTE | 2017-12-10 11:26 | PDOC DISCHARGE SUMMARY ---
General - Admit/Disc Date/PCP Admission Date/Primary Care Provider: 12/10/17 02:43 Discharge Date: 12/10/17 - Discharge Diagnosis (1) Angioedema Is this a current diagnosis for this admission?: Yes Summary: Swelling of lips face tongue no wheezing (2) Urticaria Is this a current diagnosis for this admission?: Yes Summary: Diffuse hives and pruritus (3) Allergic reaction Is this a current diagnosis for this admission?: Yes Summary: Childhood allergy to grass cuttings - Additional Information Resuscitation Status: Full Code Discharge Diet: As Tolerated Discharge Activity: Activity As Tolerated Prescriptions: Cetirizine HCl [Zyrtec 10 mg Tablet] 1 tab PO DAILY #30 tablet Epinephrine [Epipen] 0.3 mg IJ ONCE PRN #1 auto.injct PRN Reason: Shortness Of Breath Methylprednisolone [Medrol Dosepack (4 mg/Tab) 21 Tab/Dosepak] 21 tab PO ASDIR PRN #1 dspk PRN Reason: Home Medications: Cetirizine HCl [Zyrtec 10 mg Tablet] 1 tab PO DAILY #30 tablet 12/10/17 Epinephrine [Epipen] 0.3 mg IJ ONCE PRN #1 auto.injct 12/10/17 Methylprednisolone [Medrol Dosepack (4 mg/Tab) 21 Tab/Dosepak] 21 tab PO ASDIR PRN #1 dspk 12/10/17 History of Present Illness Patient complains of: Allergic reaction History of Present Illness: TAMIA FRYE is a 37 year old male with a past medical history of tobacco , alcohol dependence and severe allergy to cut grass. He presents with 12 hours of itching throat, facial swelling and hives after contact with his children who had been on the lawn. Symptoms have worsened despite on 100 mg of Benadryl and Tylenol. He admits a mild episode previously. He denies current medications and is otherwise felt well. In the emergency room he has an unremarkable workup with exception to mild thrombocytopenia. Hospital Course Hospital Course: Patient was admitted for observation overnight placed on IV Solu-Medrol. The following morning he had no swelling of the tongue there was no globus sensation. He still had some facial swelling. His lungs were clear. Patient has a childhood allergy to grass cuttings but states he has never had a severe reaction. 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 Patient has no insurance has no primary care provider. He was provided a prescription for EpiPen and a Solu-Medrol Dosepak and given 1 refill that he should keep on hand should he have another reaction. He was also advised to use Zyrtec [id number] as needed. Prior to discharge he was given his prescriptions was instructed to seek a generic EpiPen and was cautioned on the cost of this device.. He was given a list of primary care providers it is recommended that he have a primary care provider who can monitor him on an ongoing basis due to the severity of his reaction. Physical Exam Vital Signs: Temp Pulse Resp BP Pulse Ox 97.4 F 53 L 16 126/92 H 100 12/10/17 11:10 12/10/17 11:10 12/10/17 11:10 12/10/17 11:10 12/10/17 11:10 Intake & Output 12/09/17 12/10/17 12/11/17 06:59 06:59 06:59 Weight 65.4 kg General appearance: PRESENT: no acute distress, well-developed, well-nourished Head exam: PRESENT: atraumatic, normocephalic, other - Swelling about the eyes and mild swelling about the lips Eye exam: PRESENT: conjunctiva pink, EOMI, PERRLA. ABSENT: scleral icterus Mouth exam: PRESENT: moist, tongue midline, other - No oropharyngeal edema Neck exam: ABSENT: carotid bruit, JVD, lymphadenopathy, thyromegaly Respiratory exam: PRESENT: clear to auscultation henry. ABSENT: rales, rhonchi, wheezes Cardiovascular exam: PRESENT: RRR. ABSENT: diastolic murmur, rubs, systolic murmur GI/Abdominal exam: PRESENT: normal bowel sounds, soft. ABSENT: distended, guarding, mass, organolmegaly, rebound, tenderness Extremities exam: PRESENT: full ROM. ABSENT: calf tenderness, clubbing, pedal edema Results Laboratory Results: 12/10/17 06:13 12/10/17 06:13 12/10/17 12/10/17 06:13 06:13 WBC 5.7 RBC 4.96 Hgb 16.3 Hct 48.0 MCV 97 MCH 32.9 MCHC 34.0 RDW 12.5 Plt Count 145 L Seg Neutrophils % 89.1 H Lymphocytes % 6.7 L Monocytes % 4.0 Eosinophils % 0.1 Basophils % 0.1 Absolute Neutrophils 5.1 Absolute Lymphocytes 0.4 L Absolute Monocytes 0.2 Absolute Eosinophils 0.0 Absolute Basophils 0.0 Sodium 138.0 Potassium 4.5 Chloride 109 H Carbon Dioxide 22 Anion Gap 7 BUN 11 Creatinine 0.74 Est GFR ( Amer) > 60 Est GFR (Non-Af Amer) > 60 Glucose 149 H Calcium 9.2 Qualifiers - * PATIENT BEING DISCHARGED WITH ANY OF THE FOLLOWING DIAGNOSIS: No Plan Time Spent: Less than 30 Minutes
== END 2017-12-10 11:55 | disposition home or self-care (01) ==
LOC: ER 21:55 → EH 12-10 02:43 → 3S 12-10 05:30
PROVIDERS: ADMIT Internal Medicine; ATTEND Internal Medicine
DX: T78.3XXA Angioneurotic edema, initial encounter (principal); D69.6 Thrombocytopenia, unspecified; Z91.048 Other nonmedicinal substance allergy status; F17.200 Nicotine dependence, unspecified, uncomplicated; Z82.49 Family history of ischemic heart disease and other diseases of the circulatory system
CPT/HCPCS: 99285; 96372; 96374; 96375; 36415; 85025; 80048; G0378 ×2; J1200; J0171 ×2; J2930 ×2; S0028 ×2